=== PATIENT | female | born 2000 | race Two or more races ===

== ENCOUNTER 2024-04-18 21:57 | Emergency (ER) | payer MEDICAID ==
[~2024-04-18] VITALS: Ht 157.5 cm; Wt 59.0 kg
[2024-04-18 22:13] VITALS: BP 126/68; TEMP 98.1; O2SAT 98
[2024-04-18] MEDS ORDERED: AMOX-430 PO (22:19)
== END 2024-04-18 22:47 | disposition home or self-care (01) ==
LOC: ER 22:00
DX: S01.83XA Puncture wound without foreign body of other part of head, initial encounter (principal); W54.0XXA Bitten by dog, initial encounter; Y93.89 Activity, other specified; Y92.89 Other specified places as the place of occurrence of the external cause; Y99.8 Other external cause status